=== PATIENT | male | born 1980 | race Caucasian/White ===

== ENCOUNTER → 2019-02-23 | Outpatient (CLI) | payer OTHER ==
--- NOTE | 2019-02-23 17:47 | REP ---
LEFT SHOULDER, THREE VIEWS: Three views of the left shoulder are performed. No acute fracture or dislocation is seen. There is no intrinsic osseous pathology. There is moderate narrowing of the acromioclavicular joint. IMPRESSION: Moderate narrowing of the acromioclavicular joint. Electronically Signed by David Nolasco MD 02/24/2019 03:27 P
--- NOTE | 2019-02-23 17:56 | REP ---
CERVICAL SPINE, AP AND LATERAL: Four AP and lateral views of the cervical spine are performed. There is no fracture or dislocation. There is straightening of the normal cervical lordosis. There is no prevertebral soft-tissue swelling. There is mild disc space narrowing and subchondral sclerosis at C3-4 and C4-5. I see no other significant finding. IMPRESSION: Straightening of the normal cervical lordosis. Mild disc space narrowing and degenerative disc change at C3-4 and C4-5. Electronically Signed by David Nolasco MD 02/24/2019 03:27 P
== END ==
LOC: M WUC 16:40
PROVIDERS: ATTEND Physician Assistant
DX: M54.12 Radiculopathy, cervical region (principal)

== ENCOUNTER 2020-03-01 10:56 | Emergency (ER) | payer OTHER ==
[~2020-03-01] VITALS: Ht 180.3 cm; Wt 95.7 kg
[2020-03-01 11:32] LABS: BASO % 0.4 % (0.0-1.0); EOS # 0.5 10^3/uL (0.0-0.5); HEMATOCRIT 41.4 % (42.0-52.0); HEMOGLOBIN 14.1 g/dl (13.5-17.5); LYMPH # 1.8 10^3/uL (1.5-5.0); MEAN CORPUSCULAR HEMOGLOBIN 29.6 pg (27.0-33.0); MEAN CORPUSCULAR HGB CONC 34.1 g/dl (32.0-36.5); MONO # 0.5 10^3/uL (0.0-0.8); MONO % 7.7 % (0.0-5.0); NEUTROPHILS # 3.9 10^3/uL (1.5-8.5); NEUTROPHILS % 57.8 % (36.0-66.0); PLATELET COUNT, AUTOMATED 172 10^3/uL (150-450); RED BLOOD COUNT 4.76 10^6/uL (4.30-6.10); WHITE BLOOD COUNT 6.7 10^3/uL (4.0-10.0)
[2020-03-01] MEDS ORDERED: FLUTISP (11:40)
--- NOTE | 2020-03-01 11:40 | REP ---
INDICATION: CHEST PAIN. COMPARISON: None. TECHNIQUE: SINGLE PORTABLE AP VIEW OF THE CHEST WAS PERFORMED. FINDINGS: THERE IS NO ACUTE INFILTRATE OR PULMONARY EDEMA. LUNGS ARE CLEAR. HEART IS NOT SIGNIFICANTLY ENLARGED. MEDIASTINAL SILHOUETTE IS UNREMARKABLE. THE VISUALIZED OSSEOUS STRUCTURES ARE INTACT. IMPRESSION: NO ACUTE PULMONARY DISEASE. <Electronically signed by David Nolasco > 03/01/20 [id number]
[2020-03-01 12:14] LABS: ALBUMIN 3.8 GM/DL (3.2-5.2); ALT/SGPT 38 U/L (12-78); BILIRUBIN,DIRECT 0.1 MG/DL (0.0-0.2); BILIRUBIN,TOTAL 0.6 MG/DL (0.2-1.0); BLOOD UREA NITROGEN 16 MG/DL (7-18); CALCIUM LEVEL 8.8 MG/DL (8.5-10.1); CARBON DIOXIDE LEVEL 27 MEQ/L (21-32); CHLORIDE LEVEL 109 MEQ/L (98-107); FREE T4 0.92 NG/DL (0.76-1.46); GLOMERULAR FILTRATION RATE > 60.0 (>60); GLUCOSE, FASTING 79 MG/DL (70-100); LIPASE 104 U/L (73-393); POTASSIUM SERUM 3.9 MEQ/L (3.5-5.1); SODIUM LEVEL 143 MEQ/L (136-145)
[2020-03-01 14:15] VITALS: BP 126/88
--- NOTE | 2020-03-03 08:23 | ECGEPIP ---
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
--- NOTE | 2020-03-03 08:24 | ECGEPIP ---
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
== END 2020-03-01 14:33 | disposition home or self-care (01) ==
LOC: M ED 10:56
DX: R07.9 Chest pain, unspecified (principal)

== ENCOUNTER → 2022-12-06 | Outpatient (CLI) | payer OTHER ==
[~2022-12-06] MED LIST: FLUT50SP17
[2022-12-06 17:23] LABS: BASO % 0.6 % (0.0-1.0); EOS # 0.5 10^3/uL (0.0-0.5); HEMATOCRIT 43.9 % (42.0-52.0); LYMPH # 2.2 10^3/uL (1.5-5.0); LYMPH % 34.1 % (24.0-44.0); MEAN CORPUSCULAR HEMOGLOBIN 30.2 pg (27.0-33.0); MEAN CORPUSCULAR HGB CONC 34.2 g/dl (32.0-36.5); MEAN CORPUSCULAR VOLUME 88.5 fl (80.0-96.0); MONO # 0.6 10^3/uL (0.0-0.8); MONO % 8.8 % (2.0-8.0); NEUTROPHILS # 3.2 10^3/uL (1.5-8.5); NEUTROPHILS % 49.2 % (36.0-66.0); PLATELET COUNT, AUTOMATED 184 10^3/uL (150-450); RED BLOOD COUNT 4.96 10^6/uL (4.30-6.10); WHITE BLOOD COUNT 6.5 10^3/uL (4.0-10.0)
[2022-12-06 22:49] LABS: ALBUMIN 4.2 G/DL (3.2-5.2); ALKALINE PHOSPHATASE 83 U/L (46-116); ALT/SGPT 49 U/L (7.0-40); AST/SGOT 22 U/L (<34); BILIRUBIN,TOTAL 0.8 MG/DL (0.3-1.2); BLOOD UREA NITROGEN 13 MG/DL (9-23); CALCIUM LEVEL 9.3 MG/DL (8.5-10.1); CARBON DIOXIDE LEVEL 30 MMOL/L (20-31); CHLORIDE LEVEL 107 MMOL/L (98-107); CHOLESTEROL LEVEL 219 MG/DL (<200); CREATININE FOR GFR 1.04 MG/DL (0.70-1.30); GLOMERULAR FILTRATION RATE > 60.0 (>60); GLUCOSE, FASTING 106 MG/DL (60-100); HDL CHOLESTEROL 40.5 MG/DL (>40); LDL CHOLESTEROL 141.1 MG/DL (<100); NON-HDL-C 178.5 MG/DL; POTASSIUM SERUM 4.5 MMOL/L (3.5-5.1); SODIUM LEVEL 143 MMOL/L (136-145); TOTAL PROTEIN 7.2 G/DL (5.7-8.2); TRIGLYCERIDES LEVEL 187 MG/DL (<150)
[2022-12-06 22:50] LABS: THYROID STIMULATING HORMONE 1.595 uIU/ML (0.55-4.78); TOTAL 25(OH) VITAMIN D 13.6 NG/ML (20.0-100.0)
[2022-12-06 22:51] LABS: FREE T4 0.99 NG/DL (0.89-1.76)
[2022-12-07 00:42] LABS: HEMOGLOBIN A1c 4.6 % (4.0-6.0)
== END ==
LOC: M WUC 11:37
PROVIDERS: ATTEND Registered Nurse
DX: E66.9 Obesity, unspecified (principal)

== ENCOUNTER → 2023-06-09 | Outpatient (CLI) | payer BC, OTHER ==
[~2023-06-09] MED LIST changes: -FLUT50SP17; +FLUTISP
== END ==
LOC: M RAD 14:11
PROVIDERS: ATTEND Registered Nurse
DX: N50.811 Right testicular pain (principal)

== ENCOUNTER → 2025-01-28 | Outpatient (CLI) | payer BC ==
[2025-01-28 18:37] LABS: BASO # 0.0 10^3/uL (0.0-0.2); BASO % 0.6 % (0.0-1.0); EOS # 0.3 10^3/uL (0.0-0.5); EOS % 5.0 % (0.0-3.0); LYMPH # 2.0 10^3/uL (1.5-5.0); LYMPH % 29.8 % (24.0-44.0); MONO # 0.7 10^3/uL (0.0-0.8); MONO % 10.8 % (2.0-8.0); NEUTROPHILS # 3.5 10^3/uL (1.5-8.5); NEUTROPHILS % 53.6 % (36.0-66.0); PLATELET COUNT, AUTOMATED 191 10^3/uL (150-450)
[2025-01-28 18:44] LABS: ALT/SGPT 98 U/L (7.0-40); AST/SGOT 36 U/L (<34); CALCIUM LEVEL 9.5 MG/DL (8.5-10.1); CARBON DIOXIDE LEVEL 26 MMOL/L (20-31); CHLORIDE LEVEL 107 MMOL/L (98-107); CHOLESTEROL LEVEL 246 MG/DL (<200); CHOLESTEROL RISK RATIO 6.42 (<5); CREATININE FOR GFR 0.98 MG/DL (0.70-1.30); GLOMERULAR FILTRATION RATE > 90.0 (>60); LDL CHOLESTEROL 170.3 MG/DL (<100); NON-HDL-C 207.7 MG/DL; POTASSIUM SERUM 4.2 MMOL/L (3.5-5.1); SODIUM LEVEL 141 MMOL/L (136-145); TRIGLYCERIDES LEVEL 187 MG/DL (<150)
[2025-01-28 18:45] LABS: FREE T4 1.27 NG/DL (0.89-1.76)
[2025-01-28 19:12] LABS: ESTIMATED AVERAGE GLUCOSE 97.0 MG/DL (60-110)
== END ==
LOC: M WUC 15:05
PROVIDERS: ATTEND Nurse Practitioner Family
DX: I10 Essential (primary) hypertension (principal)

== ENCOUNTER → 2025-02-04 | Outpatient (CLI) | payer BC | LOC: M LAB 14:50 | PROVIDERS: ATTEND Family Medicine | DX: R53.83 Other fatigue (principal) ==